=== PATIENT | male | born 2000 | race Two or more races ===

== ENCOUNTER 2022-09-09 14:15 | Emergency (ER) | payer MEDICAID, SELFPAY ==
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
[2022-09-09 15:08] VITALS: BP 131/79; PULSE 76; RESP 18; TEMP 37; O2SAT 97; BMI 37.6
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
[2022-09-09 15:12] VITALS: BP 131/79; PULSE 76; RESP 18; TEMP 37; O2SAT 97; BMI 37.6
--- OUTSIDE RECORDS SUMMARY | 2022-09-09 16:13 | XMS_ITS | Continuity of Care Document ---
Author Name Unknown Organization [facility] ter Address [address] [place] [id number]- Care Team Providers Care Public Policy Professor Name Role Phone Not on Staff, PCP Primary Care Physician Unavail able Encounter [facility] Date(s): 10/19/20 - 10/19/[address] [address]- Encounter Diagnosis Mechanical back pain(Final) - 10/19/20 Discharge Disposition: A-D/C Home Attending Physician: Shanel Leahy MD Admitting Physician: Shanel Leahy MD Referring Physician: Not on Staff, Referring MD Allergies, Adverse Reactions, Alerts Substance Reaction Severity Status NKA Active Medications ibuprofen 600 mg oral tablet 600 mg, 1, tablet, By Mouth, Every 8 hours, # 30 tablet, Refills 0, Tot. Refills 0, Maintenance, 10/19/20 13:36:00 EDT, Route to Pharmacy Electronically, [facility]/pharmacy #[id number], Partial fill upon patientrequest if the prescription is for a schedule II op... Start Date: 10/19/20 Status: Ordered Vital Signs Most recent to oldest [Reference Range]: 1 Height 170 cm (10/19/20 12:16 PM) Weight 110 kg (10/19/20 12:16 PM) Oxygen Saturation [94-100 %] 97 % (10/19/20 12:16 PM) Pulse Rate [55-90 bpm] 76 bpm (10/19/20 12:16 PM) Body Mass Index [18.5-24.99] 38.06 *>HHI* (10/19/20 12:16 PM) Blood Pressure [90-138/55-84 mm Hg] 146/ 85mm Hg *H* (10/19/20 12:16 PM) Respiratory Rate [16-30 br/min] 16 br/mi n (10/19/20 12:16 PM) Temperature [96.8-100.4 DegF] 98.7 DegF (10/19/20 12:16 PM) Mode of Delivery (Oxygen) Room air (10/19/20 12:16 PM) Temperature Route Oral (10/19/20 12:16 PM) Dry Weight 110 kg (10/19/20 12:16 PM)
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
== END 2022-09-09 17:31 | disposition home or self-care (01) ==
PROVIDERS: Emergency Provider Emergency Medicine; PCP Pediatrics
DX: S16.1XXA Strain of muscle, fascia and tendon at neck level, initial encounter (principal); S39.012A Strain of muscle, fascia and tendon of lower back, initial encounter; V43.52XA Car driver injured in collision with other type car in traffic accident, initial encounter; R51.9 Headache, unspecified; Y93.89 Activity, other specified; Y92.488 Other paved roadways as the place of occurrence of the external cause; Y99.9 Unspecified external cause status
CPT/HCPCS: 70450; 72125; 99282; 99284